=== PATIENT | female | born 1965 | race Caucasian/White ===

== ENCOUNTER 2016-10-14 19:58 | Emergency (ER) | payer OTHER | END 2016-10-14 22:30 | disposition home or self-care (01) | LOC: FER 19:58 | DX: J30.2 Other seasonal allergic rhinitis (principal); R53.1 Weakness; R11.0 Nausea; G43.909 Migraine, unspecified, not intractable, without status migrainosus; Z79.899 Other long term (current) drug therapy | CPT/HCPCS: 99283 ==